=== PATIENT | female | born 1935 | race Caucasian/White ===

== ENCOUNTER 2016-06-06 09:14 | Inpatient (IN) | payer MEDICARE, OTHER ==
[~2016-06-06] VITALS: Ht 160 cm; Wt 71.0 kg
[~2016-06-06 09:14] MED LIST: ALLEGRA-D1 TAB.SR1 PO; ARTIFICIAL TEAR15 ML EACH EYE; ASPIRIN81 MG PO; BUMETANIDE0.5 MG PO; GABAPENTIN100 MG PO; HCTZ25 MG PO; HYDROCODONE-APA1 TAB PO; KLONOPIN1 MG PO; MELATONIN 10 M1 EACH PO; MOBIC7.5 MG PO; NORVASC10 MG PO; NUTRISOURCE FI1 EACH PO; OMEPRAZOLE20 M1 PO; PLAVIX75 MG PO; PRAVACHOL20 MG PO; PROAIR HFA8.5 GM INH; PROBIOTIC1 EAC1 PO; SINGULAIR10 MG PO; TRIAMTERENE-HCT1 TA1 PO; VITAMIN B-121000 MCG PO; VITAMIN D5000 UNIT PO
[2016-06-06 09:59] LABS: BASOPHILS 0.2 % (0.0-2.0); EOSINOPHILS 0.9 % (0-7); HEMATOCRIT 37.5 % (36.0-48.0); HEMOGLOBIN 12.5 g/dL (12-16); IMMATURE GRANULOCYTES 0.3 % (0-5); LYMPHOCYTES 20.1 % (15-50); MCH 31.2 pg (26.0-34.0); MCHC 33.3 g/dL (31.0-37.0); MCV 93.5 fL (80.0-100.0); MEAN PLATELET VOLUME 10.5 fL (7.4-10.4); MONOCYTES 11.2 % (2-11); NEUTROPHILS 67.3 % (40-80); RBC 4.01 10x6/uL (4.00-5.40); RDW 12.3 % (11.5-14.5); WBC 5.9 10x3/uL (4.8-10.8)
[2016-06-06 10:05] LABS: PLATELET COUNT 210 10x3/uL (130-400)
[2016-06-06 10:18] LABS: ALBUMIN 3.4 g/dL (3.4-5.0); ALKALINE PHOSPHATASE 71 U/L (46-116); ALT (SGPT) 27 U/L (10-68); BILIRUBIN - TOTAL 0.35 mg/dL (0.2-1.3); CALC OSMOLALITY 280 mosm/kg (275-300); CALCIUM 9.2 mg/dL (8.5-10.1); CHLORIDE - SERUM 98 mmol/L (98-107); CREATININE - SERUM 1.2 mg/dL (0.6-1.3); GLUCOSE 96 mg/dL (74-106); POTASSIUM - SERUM 3.3 mmol/L (3.5-5.1); PROTEIN - SERUM 7.3 g/dL (6.4-8.2); SODIUM 137 mmol/L (136-145); UREA NITROGEN 31 mg/dL (7-18); eGFR NON AFRICAN AMERICAN 46 mL/min (90-120)
[2016-06-06 10:26] LABS: PRO BNP 494 pg/mL (0-450); TROPONIN-I < 0.017 ng/mL (0.000-0.060)
--- NOTE | 2016-06-06 13:05 | NUR ---
REPORT REC'D FROM ZARI SMITH, IN ER. ROOM READY AND AWAITING PT ARRIVAL.
--- NOTE | 2016-06-06 13:36 | NUR ---
Patient Name: FLAQUITA MCGRATH Admission Status: ER Accout number: [id number] Admission Date: 06-06-2016 : 1935 Admission Diagnosis: Pneumonia Attending: BJORN Current LOS: 1 Anticipated DC Date: 06/10/16 Planned Disposition: Return home with and daughter Primary Insurance: MEDICARE A & B Discharge Planning Comments: Cm met with patient and daughter to complete initial dc planning assessment. Consent given by patient to complete assessment. Patient lives at home with her who has Alzheimer's and she is his primary caregiver. She does not use any assistive devices for ambulatory aide, nor does she use any community resources. Her discharge plans at this time is to return home with her and daughter. She denied dc needs at this time. Cm will continue to follow and assist as needed with dc plans/needs. Wind Turbine Sheet Metal Worker: Radha Srivastava RN, [facility] [phone] Is the patient Alert and Oriented? Yes * PCP Dr. Cheng [place] [facility] * Pharmacy [facility] in [place] * Preadmission Environment Home with Family * ADLs Independent * Equipment None * List name and contact numbers for known caregivers / representatives who currently or will assist patient after discharge: Dodie Newsome - daughter (lives with her) [phone] Yvonne Miller - daughter - [phone] * Community resources currently utilized None * Please name any agencies selected above. none * Additional services required to return to the preadmission environment? No * Can the patient safely return to the preadmission environment? Yes * Has this patient been hospitalized within the prior 30 days at any hospital? No
--- NOTE | 2016-06-06 13:50 | NUR ---
PT REC'D TO ROOM VIA WC, ACCOMPANIED BY HOSPITAL STAFF, ABLE TO AMBULATE WITHOUT ASSISTANCE FROM WC TO BED. 2L O2 BEING DELIVERED VIA NC. AAOX4. PUPILS ARE MISHAPPEN. PT STATES, "I HAD CATARACTS SURGERY WHEN I WAS ABOUT 42, AND IT WAS STILL AN EXPERIMENTAL PROCEDURE AT THE TIME." REGULAR HEART RATE AND RHYTHM. RUNNING 55 SB ON THE MONITOR. EXPIRATORY WHEEZES NOTED BILAT TO UPPER LOBES, AND FINE CRACKLES NOTED TO BILAT LOWER LOBES. FREQUENT PRODUCTIVE COUGH WITH GREEN/YELLOW SPUTUM. BOWEL SOUNDS ACTIVE X4 QUADRANTS. SCD'S ON. BED LOW, CALL LIGHT IN REACH, DENIES NEEDS. CPOC.
--- NOTE | 2016-06-06 14:30 | NUR ---
MEDS PASSED AT THIS TIME. DR. DELANEY AT BEDSIDE DISCUSSING POC. PRN TUSSONEX ADMINISTERED PER PT COMPLAINTS OF CHEST PAIN DUE TO COUGH. WILL REASSESS. BED LOW, CALL LIGHT IN REACH, DENIES NEEDS, CPOC.
[2016-06-06 16:43] VITALS: BP 108/50
[2016-06-06 18:34] VITALS: BP 108/50; BMI 27.8
[2016-06-06 21:35] VITALS: BP 117/88
[2016-06-07 01:00] VITALS: BP 118/43
--- NOTE | 2016-06-07 02:00 | NUR ---
PT IN BED WITH NO NEEDS. LEFT A/C PATENT AND SALINE LOC. SCD'S ON. O2 @ 2 PER NASAL CANNULA. LEFT LOBES DIMINISHED PER AUSCULTATION. TELEMETRY ON WITH PT SINUS SHANTEL. SIDE RAILS ARE UP X 2. BED IS LOW. CALL LIGHT IN REACH.
[2016-06-07 04:00] VITALS: BP 127/48
[2016-06-07 05:45] LABS: BASOPHILS 0 % (0.0-2.0); EOSINOPHILS 0 % (0-7); HEMATOCRIT 35.2 % (36.0-48.0); HEMOGLOBIN 11.5 g/dL (12-16); LYMPHOCYTES 13.2 % (15-50); MCH 30.7 pg (26.0-34.0); MCHC 32.7 g/dL (31.0-37.0); MCV 93.9 fL (80.0-100.0); MEAN PLATELET VOLUME 10.3 fL (7.4-10.4); MONOCYTES 7.6 % (2-11); NEUTROPHILS 79.2 % (40-80); PLATELET COUNT 205 10x3/uL (130-400); RBC 3.75 10x6/uL (4.00-5.40); RDW 12.1 % (11.5-14.5)
[2016-06-07 06:17] LABS: ANION GAP 12.8 mmol/L (8-16); CALCIUM 9.4 mg/dL (8.5-10.1); CARBON DIOXIDE 30.2 mmol/L (21.0-32.0); CREATININE - SERUM 1.5 mg/dL (0.6-1.3)
[2016-06-07 08:29] VITALS: BP 115/50
[2016-06-07 12:29] VITALS: BP 114/41
[2016-06-07 12:57] VITALS: Ht 160 cm; Wt 71.0 kg
--- NOTE | 2016-06-07 15:27 | NUR ---
PATIENT RESTING IN HER BED, HOB UP IN SEMI FOWLERS. SHE IS WORKING ON HER CROSSWORD PUZZLE. STUDENT NURSE AT THE BEDSIDE. DENIED NEEDS AT THIS TIME.
[2016-06-07 15:37] VITALS: BP 123/54
--- NOTE | 2016-06-07 17:44 | NUR ---
PATIENT SITTING UP IN HER BED, ZAYRA WINLERS EATING HER MEAL. DAUGHTER AT THE BEDSIDE. DENIES NEEDS. IS VERY PLEASED WITH HER STUDENT NURSE.
[2016-06-07 19:15] VITALS: BP 127/50
--- NOTE | 2016-06-07 20:40 | NUR ---
PATIENT IN SEMI-FOWLERS POSITION. STUDENT NURSE AND TEACHER AT BEDSIDE ADMINISTERING MEDS. PATIENT DENIES NEEDS AT THIS TIME. BED IN LOWEST POSITION AND CALL LIGHT WITHIN REACH.
[2016-06-08] VITALS: BP 130/55
[2016-06-08 04:00] VITALS: BP 145/46
[2016-06-08 06:41] LABS: BASOPHILS 0 % (0.0-2.0); EOSINOPHILS 0 % (0-7); HEMATOCRIT 36.4 % (36.0-48.0); HEMOGLOBIN 11.9 g/dL (12-16); IMMATURE GRANULOCYTES 0.3 % (0-5); LYMPHOCYTES 16.6 % (15-50); MCH 30.5 pg (26.0-34.0); MCHC 32.7 g/dL (31.0-37.0); MCV 93.3 fL (80.0-100.0); MEAN PLATELET VOLUME 10.1 fL (7.4-10.4); MONOCYTES 9.2 % (2-11); NEUTROPHILS 73.9 % (40-80); PLATELET COUNT 209 10x3/uL (130-400); RDW 12.3 % (11.5-14.5)
[2016-06-08 06:44] LABS: WBC 5.7 10x3/uL (4.8-10.8)
[2016-06-08 07:34] LABS: ANION GAP 12.4 mmol/L (8-16); CALCIUM 9.4 mg/dL (8.5-10.1); CREATININE - SERUM 1.2 mg/dL (0.6-1.3); MAGNESIUM - SERUM 1.5 mg/dL (1.8-2.4); PHOSPHOROUS 2.6 mg/dL (2.5-4.9); POTASSIUM - SERUM 3.4 mmol/L (3.5-5.1)
[2016-06-08 08:05] VITALS: BP 93/54
[2016-06-08 11:51] VITALS: BP 133/51
[2016-06-08 15:43] VITALS: BP 128/57
--- NOTE | 2016-06-08 18:48 | NUR ---
PATIENT EMOTIONAL SINCE HER "HAD ANOTHER SPELL". SHE HAS DESCRIBED HIM BEING COMBATIVE AT TIMES, ESPECIALLY TOWARD HER DAUGHTER THAT IS AT STAYING HOME TO CARE FOR HIM
--- NOTE | 2016-06-08 20:00 | NUR ---
PATIENT RESTING IN BED AND DENIES NEEDS AT THIS TIME. PATIENT'S BED IN LOWEST POSITION AND CALL LIGHT WITHIN REACH.
[2016-06-08 21:24] VITALS: BP 138/56
[2016-06-09 00:46] VITALS: BP 151/61
[2016-06-09 05:33] VITALS: BP 144/55
[2016-06-09 06:23] LABS: BASOPHILS 0.9 % (0.0-2.0); EOSINOPHILS 0.9 % (0-7); HEMATOCRIT 38.3 % (36.0-48.0); HEMOGLOBIN 11.3 g/dL (12-16); IMMATURE GRANULOCYTES 2.8 % (0-5); LYMPHOCYTES 16.6 % (15-50); MCH 27.7 pg (26.0-34.0); MCHC 29.5 g/dL (31.0-37.0); MCV 93.9 fL (80.0-100.0); MEAN PLATELET VOLUME 11.4 fL (7.4-10.4); NEUTROPHILS 73.8 % (40-80); RBC 4.08 10x6/uL (4.00-5.40); RDW 12.3 % (11.5-14.5); WBC 5.4 10x3/uL (4.8-10.8)
[2016-06-09 06:24] LABS: PLATELET COUNT 161 10x3/uL (130-400)
[2016-06-09 06:48] LABS: ANION GAP 15.3 mmol/L (8-16); CALCIUM 9.6 mg/dL (8.5-10.1); CREATININE - SERUM 0.9 mg/dL (0.6-1.3)
[2016-06-09 06:49] LABS: POTASSIUM - SERUM 4.3 mmol/L (3.5-5.1)
[2016-06-09 08:48] VITALS: BP 150/109
[2016-06-09 11:17] VITALS: BP 157/103
--- NOTE | 2016-06-09 13:51 | NUR ---
NUTRITION MONITORING & EVAL CHART REVIEWED. PT TOLERATING AHA DIET, 50% INTAKE RECENT MEALS. WILL CONTINUE TO PROVIDE DIET, MONITOR PT PROGRESS. RD FOLLOWING
[2016-06-09 14:49] VITALS: BP 160/49
--- NOTE | 2016-06-09 20:30 | NUR ---
AWAKE,ALERT,NO COMPLIANTS VOICED. SL TO RIGHT FOREARM WIHTOUT REDNESS OR EDEMA NOTED. UP AD DELISA TO BATHROOM. CL IN REACH. DAUGHTER AT BEDSIDE.
[2016-06-09 21:00] VITALS: BP 124/54
--- NOTE | 2016-06-10 00:01 | NUR ---
RESTING IN BED WITH EYES CLOSED, NC IN PLACE, NO DISTRESS NOTED, SAFETY MEASURES IN PLACE, CL IN REACH
[2016-06-10 01:30] VITALS: BP 122/60
[2016-06-10 05:00] VITALS: BP 136/88
[2016-06-10 05:13] LABS: BASOPHILS 0.3 % (0.0-2.0); EOSINOPHILS 0 % (0-7); HEMATOCRIT 39.3 % (36.0-48.0); IMMATURE GRANULOCYTES 2.6 % (0-5); LYMPHOCYTES 20.5 % (15-50); MCH 30.7 pg (26.0-34.0); MCHC 33.1 g/dL (31.0-37.0); MCV 92.9 fL (80.0-100.0); MEAN PLATELET VOLUME 10.3 fL (7.4-10.4); MONOCYTES 8.1 % (2-11); NEUTROPHILS 68.5 % (40-80); RBC 4.23 10x6/uL (4.00-5.40); RDW 12.3 % (11.5-14.5)
[2016-06-10 05:16] LABS: PLATELET COUNT 243 10x3/uL (130-400)
[2016-06-10 05:46] LABS: CALCIUM 9.7 mg/dL (8.5-10.1); CARBON DIOXIDE 30.6 mmol/L (21.0-32.0)
--- NOTE | 2016-06-10 05:47 | NUR ---
AWAKE WITH NO COMPLAINTS
[2016-06-10 05:49] LABS: POTASSIUM - SERUM 3.6 mmol/L (3.5-5.1)
--- NOTE | 2016-06-10 07:00 | NUR ---
REPORT RECEIVED FROM BAKERY WORKER NURSE. CALL LIGHT IN REACH.
[2016-06-10 08:00] VITALS: BP 146/52
--- NOTE | 2016-06-10 09:25 | NUR ---
PREOP MEDS GIVEN. TO RADIOLOGY VIA .
--- NOTE | 2016-06-10 10:10 | NUR ---
BACK IN ROOM AT THIS TIME. VSS. WILL CONTINUE TO MONITOR.
[2016-06-10 11:35] VITALS: BP 124/82
--- NOTE | 2016-06-10 12:00 | NUR ---
DAUGHTER HAS CALLED THE ICU NURSE AND STATED SHE WANTS A RAPID RESPONSE BUT SHE THERE ARE NO REASONS FOR ONE RIGHT NOW.
--- NOTE | 2016-06-10 12:11 | NUR ---
AM MEDS ADMINISTERED. AC PO. SON AT BEDSIDE. CALL LIGHT IN REACH. PATIENT HAS NO COMPLAINTS AT THIS TIME AND SEEMS TO BE HAPPY.
--- NOTE | 2016-06-10 14:50 | NUR ---
EXPLAINED TO PATIENT THAT SHE IS NOW ON A 1500 CC H20 WATER.
--- NOTE | 2016-06-10 15:08 | NUR ---
RAFA LOMBARDI PO. STATES PAIN HAS DECREASED TO A 2. IN ROOM AT THIS TIME. CALL LIGHT IN REACH.
[2016-06-10 15:24] VITALS: BP 112/37
--- NOTE | 2016-06-10 16:00 | NUR ---
DENIES NEEDS AT THIS TIME. CALL LIGHT IN REACH AND RESPIRATIONS EVEN AND NON LABORED. CALL LIGHT IN REACH, WILL CONTINUE WITH PLAN OF CARE.
--- NOTE | 2016-06-10 17:15 | NUR ---
RESTING WITH EYES CLOSED. RESP EVEN AND UNLABORED.
--- NOTE | 2016-06-10 18:26 | NUR ---
NO CHANGES IN INITIAL ASSESSMENT. CALL LIGHT IN REACH. WILL CONTINUE WITH PLAN OF CARE. STILL REFUSES SCDs.
--- NOTE | 2016-06-10 18:53 | NUR ---
RECEIVED LUNCH TRAY BUT DID NOT RECEIVED DINNER TRAY. ORDER WAS PLACED IN COMPUTER AT 1830 AND KITCHEN WAS CALLED BUT THERE WAS NO ANSWER. I CALLED SEVERAL TIMES AND CALLED OVERHEAD BUT THERE WAS NO ANSWER SO SANDWICH TRAY WAS GIVEN TO PATIENT.
--- NOTE | 2016-06-10 20:00 | NUR ---
ASSESSMENT COMPLETED, NO ACUTE DISTRESS NOTED, DENIES PAIN OR NEEDS AT THIS TIME, DTR IN ROOM, SR'S UP X2, CL IN REACH, WILL MONITOR
[2016-06-10 21:25] VITALS: BP 136/58
--- NOTE | 2016-06-10 21:49 | NUR ---
MEDS GIVEN PER MAR, MARGARET WELL, DENIES NEEDS, CL IN REACH
[2016-06-11 01:14] VITALS: BP 132/56
[2016-06-11 05:00] LABS: BASOPHILS 0.1 % (0.0-2.0); EOSINOPHILS 0 % (0-7); HEMATOCRIT 39.7 % (36.0-48.0); HEMOGLOBIN 12.8 g/dL (12-16); IMMATURE GRANULOCYTES 2.2 % (0-5); LYMPHOCYTES 10.4 % (15-50); MCH 30.2 pg (26.0-34.0); MCHC 32.2 g/dL (31.0-37.0); MCV 93.6 fL (80.0-100.0); MEAN PLATELET VOLUME 10.2 fL (7.4-10.4); MONOCYTES 4.6 % (2-11); NEUTROPHILS 82.7 % (40-80); PLATELET COUNT 268 10x3/uL (130-400); RBC 4.24 10x6/uL (4.00-5.40); RDW 12.3 % (11.5-14.5)
[2016-06-11 05:05] LABS: WBC 7.8 10x3/uL (4.8-10.8)
[2016-06-11 05:19] LABS: ANION GAP 10.2 mmol/L (8-16); CALCIUM 9.4 mg/dL (8.5-10.1); CARBON DIOXIDE 31.4 mmol/L (21.0-32.0); CREATININE - SERUM 1.1 mg/dL (0.6-1.3); POTASSIUM - SERUM 3.6 mmol/L (3.5-5.1)
--- NOTE | 2016-06-11 05:25 | NUR ---
MEDS GIVEN PER JUN ALONG WITH 0900 SCHEDULED LASIX PER REQUEST, WILL CONTACT PHARMACY TO RETIME, DENIES OTHER NEEDS, CL IN REACH
[2016-06-11 06:50] VITALS: BP 127/50
--- NOTE | 2016-06-11 07:00 | NUR ---
REPORT RECEIVED FROM LEVI MAKER NURSE. CALL LIGHT IN REACH.
[2016-06-11 08:20] VITALS: BP 125/72
--- NOTE | 2016-06-11 09:18 | NUR ---
ASSESSMENT COMPLETED. AM MEDS ADMINISTERED WITH NORCO GIVEN. REFUSES SCDs. CALL LIGHT IN REACH. WILL CONTINUE WITH PLAN OF CARE. SPOKE WITH PHARMACY ABOUT MUCINEX BEING EMPTY IN BOTH PYXIS. WILL GIVE WHEN IT IS AVAILABLE. ALSO INFORMED WHOM VERBALIZED UNDERSTANDING.
--- NOTE | 2016-06-11 09:54 | NUR ---
TO CT VIA WC.
--- NOTE | 2016-06-11 10:10 | NUR ---
BACK IN ROOM AT THIS TIME. CALL LIGHT IN REACH.
--- NOTE | 2016-06-11 12:08 | NUR ---
AMBULATED 750 FT IN HALLWAY. TOLERATED WELL. JACOB PO. MUCINEX STILL IS NOT ON FLOOR. INFORMED PHARMACY AGAIN.
[2016-06-11 12:19] VITALS: BP 138/66
--- NOTE | 2016-06-11 12:25 | NUR ---
PAULINE PO. LUNCH IN ROOM. CALL LIGHT IN REACH.
--- NOTE | 2016-06-11 14:40 | NUR ---
RAFA LOMBARDI AND DEENA PO. CALL LIGHT IN REACH.
[2016-06-11 15:22] LABS: AFB SPECIMEN PROCESSING Concentration (())
--- NOTE | 2016-06-11 16:20 | NUR ---
RESTING WITH EYES CLOSED. RESP EVEN AND UNLABORED. CALL LIGHT IN REACH.
[2016-06-11 16:55] VITALS: BP 124/59
--- NOTE | 2016-06-11 17:01 | NUR ---
PATIENT IN MID FAN POSITION RESTING WITH EYES CLOSED. RESPIRATIONS EVEN AND UNLABORED. SIDE RAILS UP X2. BED IN LOW POSITION. CALL LIGHT IN REACH.
--- NOTE | 2016-06-11 18:38 | NUR ---
NO CHANGES IN INITIAL ASSESSMENT. REFUSES SCDs. CALL LIGHT IN REACH. WILL CONTINUE WITH PLAN OF CARE.
[2016-06-11 21:03] VITALS: BP 111/57
--- NOTE | 2016-06-12 00:22 | NUR ---
PATIENT SPO2 93% ON RA, NO DISTRESS NOTED
[2016-06-12 00:59] VITALS: BP 133/49
[2016-06-12 04:00] VITALS: BP 120/46
--- NOTE | 2016-06-12 07:30 | NUR ---
RECIEVED PT DURING WALKING ROUNDS. PT RESTING COMFORTABLY IN BED WITH NO COMPLAINTS OF PAIN OR DISCOMFORT AT THIS TIME. ASSESSMENT DONE PER FLOWSHEET. BED IN LOW POSITION AND CALL LIGHT WITHIN REACH. WILL CONTINUE TO MONTIOR.
[2016-06-12 07:59] VITALS: BP 134/68
--- NOTE | 2016-06-12 08:00 | NUR ---
RESTING ON RIGHT SIDE.PT IS WITHOUT DISTRESS.DENIES NEEDS AT PRESENT.CALL LIGHT IN REACH
--- NOTE | 2016-06-12 08:50 | NUR ---
DISCUSSED WITH PT AT THIS TIME ABOUT POSSIBLE DISCHARGE. INFORMED PT THAT IT WOULD BE UP TO THE DOCTOR. BED IN LOW POSITION AND CALL LIGHT ALECIN REACH. WILL CONTINUE TO MONITOR.
--- NOTE | 2016-06-12 11:06 | NUR ---
ADMINISTERED MEDICATION PER ORDER AT THIS TIME. SPOKE WITH PT DAUGHTER ON THE PHONE AT THIS TIME AND ANSWERED ANY QUESTIONS. SPOKE WITH DR. STEVEN AT THIS TIME ABOUT PT NEED FOR O2, WAS INSTRUCTED TO TAKE OXYGEN OFF AND SEE HOW PT TOLERATES. O2 ON 2L AT THIS TIME, PT SAT BETWEEN 96-97%. OXYGEN TAKEN OFF. WILL CONTINUE TO MONITOR.
--- NOTE | 2016-06-12 11:15 | NUR ---
PT PLACED ON DROPLET PRECAUTIONS AT THIS TIME DUE TO PENDING CULTURES. INFORMED DR. STEVEN AT THIS TIME. PT O2 92% ON ROOM AIR, INSTRUCTED PT TO COUGH AT THIS TIME AND OS SAT RAISED TO 98%. WILL CONTINUE TO MONITOR.
--- NOTE | 2016-06-12 11:40 | NUR ---
SPOKE WITH PTS OTHER DAUGHTER JOHNATHAN AT THIS TIME. WAS INFORMED THAT PT HAS BEEN ON ZOLOFT AT HOME AND HAS NOT BEEN RECIEVING MEDICATION WHILE IN THE HOSPITAL. DISCUSSED WITH DR. STEVEN AT THIS TIME AND RECIEVED ORDERS TO RENEW MEDICATION. WILL START MEDICATION PER ORDER. INFORMED PT OF INFORMATION. BED IN LOW POSITION AND CALL LIGHT WITHIN REACH. WILL CONTINUE TO MONITOR.
[2016-06-12 12:08] VITALS: BP 128/52
[2016-06-12 16:23] VITALS: BP 131/62
[2016-06-12 19:00] VITALS: BP 140/51
--- NOTE | 2016-06-12 20:00 | NUR ---
REC'D IN BED AWAKE AND ALERT. RESP EVEN AND UNLABORED WITH NO DISTRESS NOTED. CAN EXPRESS NEEDS AND WANTS. NO C/O PAIN OR DISCOMFORT NOTED OR VOICED AT THIS TIME. REMAIN ON CONTACT ISOLATION D/T DROPLET PRECAUTION. ASSESSMENT COMPLETED. C/L IN REACH AT BEDSIDE.
[2016-06-13] VITALS: BP 127/51
--- NOTE | 2016-06-13 00:19 | NUR ---
PATIENT RESTING WITH EYES CLOSED. NO SIGNS OF DISTRESS. BED IN LOWEST POSITION AND CALL LIGHT WITHIN REACH.
[2016-06-13 04:00] VITALS: BP 141/55
[2016-06-13 08:04] VITALS: BP 140/47
--- NOTE | 2016-06-13 08:22 | NUR ---
AWAKE AND ALERT. ORIENTED X3. NO C/O AT THIS TIME. LUNGS ARE CLEAR BILATERALLY EXCEPT TO LEFT LOWER LOBE WHICH HAS SOME CRACLES AND BOTH LL ARE DIMINISHED SLIGHTLY, REPORTS OCCASSIONALLY PRODUCTIVE COUGH WITH WHITISH LIGHT YELLOW SPUTUM. IV TO LEFT HAND PATENT WITHOUT REDNESS AT INSERTION SITE. DENIES NEEDS. BREAKFAST SERVED IN ROOM.
--- NOTE | 2016-06-13 09:20 | NUR ---
REQUESTED AND GIVEN ONE HYDROCODONE PO FOR C/O BACK PAIN LEVEL 5, SHE REPORTS THIS CHRONIC. WILL MONITOR.
--- NOTE | 2016-06-13 12:15 | NUR ---
ATE MOST OF LUNCH. DENIES NEEDS. DR. HUERTA HERE AND ADVISED PATIENT PROBABLE DISCHARGE TO HOME TOMMORROW.
[2016-06-13 12:28] VITALS: BP 109/42
--- NOTE | 2016-06-13 16:00 | NUR ---
UP TO BR TO SHOWER. NEEDS SET UP ASSIST ONLY. LINENS CHANGED PER STAFF.
[2016-06-13 16:14] VITALS: BP 105/42
--- NOTE | 2016-06-13 18:44 | NUR ---
ATE ABOUT HALF OF SUPPER TRAY. DENIES NEEDS. NO CHANGES NOTED.
--- NOTE | 2016-06-13 20:23 | NUR ---
PATIENT RESTING IN BED. NO SIGNS OF DISTRESS NOTED. RESPIRATIONS EVEN AND UNLABORED. SCHEDULED MEDICATIONS GIVEN. DENIES ANY NEEDS AT THIS TIME. BED LOW. CALL LIGHT IN REACH
[2016-06-13 21:00] VITALS: BP 127/62
[2016-06-14 02:00] VITALS: BP 120/66
--- NOTE | 2016-06-14 02:15 | NUR ---
EYES CLOSED RESPIRATIONS WITH EAS AND UNLABORED.
--- NOTE | 2016-06-14 07:50 | NUR ---
AWAKE AND ALERT AT THIS TIME RECEIVING RESPIRATORY TREATMENT. REMINDED PT OF FLUID RESTRICTION AND SHE STATED, "I DON'T RETAIN FLUID. I RETAIN FAT." DENIES NEEDS AT PRESENT TIME. CALL LIGHT IN REACH, WILL CONTINUE WITH PLAN OF CARE. REMAINS IN DROPLET ISOLATION.
[2016-06-14 08:52] VITALS: BP 156/74
[2016-06-14 09:36] LABS: ALBUMIN 3.4 g/dL (3.4-5.0); ANION GAP 14.9 mmol/L (8-16); BILIRUBIN - TOTAL 0.38 mg/dL (0.2-1.3); CALCIUM 9.3 mg/dL (8.5-10.1); CARBON DIOXIDE 29.2 mmol/L (21.0-32.0); CREATININE - SERUM 1.2 mg/dL (0.6-1.3); POTASSIUM - SERUM 3.1 mmol/L (3.5-5.1); PROTEIN - SERUM 7.1 g/dL (6.4-8.2)
--- NOTE | 2016-06-14 10:09 | NUR ---
SCHEDULED MEDICATIONS ADMINISTERED AT THIS TIME. ASSESSMENT PERFORMED PER FLOWSHEET. PT REMAINS IN DROPLET ISOLATION. PT IS HOPEFUL FOR A D/C HOME TODAY. CALL LIGHT IN REACH. PT SELF POSITIONS AND AMBULATES INDEPENDENTLY. WILL CONTINUE WITH PLAN OF CARE.
[2016-06-14 10:18] LABS: BASOPHILS 0.1 % (0.0-2.0); EOSINOPHILS 0.1 % (0-7); HEMATOCRIT 42.3 % (36.0-48.0); HEMOGLOBIN 13.6 g/dL (12-16); LYMPHOCYTES 17.4 % (15-50); MCH 30.4 pg (26.0-34.0); MCHC 32.2 g/dL (31.0-37.0); MCV 94.4 fL (80.0-100.0); MEAN PLATELET VOLUME 10.3 fL (7.4-10.4); MONOCYTES 7.8 % (2-11); NEUTROPHILS 71.6 % (40-80); RBC 4.48 10x6/uL (4.00-5.40); RDW 12.4 % (11.5-14.5); WBC 9.7 10x3/uL (4.8-10.8)
[2016-06-14 10:21] LABS: PLATELET COUNT 378 10x3/uL (130-400)
--- NOTE | 2016-06-14 12:20 | NUR ---
PRN NORCO-10 ADMINISTERED PER ORDER FOR C/O PAIN.
[2016-06-14 12:32] VITALS: BP 121/80
[2016-06-14 13:47] LABS: FUNGUS STAIN Final report (())
[2016-06-14] MEDS ORDERED: PULMICORT0.5 MG/21 UPD (13:52)
[2016-06-14] MEDS ORDERED: BENZONATATE200 MG PO (13:52)
[2016-06-14] MEDS ORDERED: MUCINEX DM ER1 EAC1 PO (13:52)
[2016-06-14] MEDS ORDERED: LASIX20 MG PO (13:53)
[2016-06-14] MEDS ORDERED: PREDNISONE20 MG PO ×2 (13:53→15:17)
[2016-06-14] MEDS ORDERED: XOPENEX 0.0.63 MG/3 UPD (13:54)
[2016-06-14] MEDS ORDERED: BROVANA15 MCG/2 M INH (13:54)
[2016-06-14] MEDS ORDERED: COZAAR50 MG PO (13:54)
[2016-06-14] MEDS ORDERED: FAMVIR500 MG PO (13:56)
[2016-06-14] MEDS ORDERED: DIFLUCAN100 MG PO (13:56)
[2016-06-14] MEDS ORDERED: VIBRAMYCIN 100100 MG PO (13:56)
[2016-06-14] MEDS ORDERED: TUSSIONEX PENN473 ML PO (14:28)
--- NOTE | 2016-06-14 14:44 | NUR ---
CM REASSESSMENT NOTE: PATIENT IS DISCHARGING HOME TODAY AND FAMILY WILL BE DRIVING HER. PATIENT CHOSE [facility] AND REFERRAL SENT AND THEY ARE AWARE OF DISCHARGE. PATIENT SIGNED THE D/C IMM NOTICE.
[2016-06-14] MEDS ORDERED: PREDNISONE10 MG PO (15:17)
--- NOTE | 2016-06-14 16:45 | NUR ---
RA SAT DURING AMBULATION 94%
--- NOTE | 2016-06-14 17:50 | NUR ---
DISCHARGED HOME WITH DAUGHTER AT THIS TIME. DISCHARGE INSRUCTIONS REVIEWED AND IV TO LEFT WRIST D/C WITH CATH TIP INTACT.
[2016-06-15 03:08] LABS: INFLUENZA A PCR Positive (Negative); INFLUENZA B PCR Negative (Negative)
--- NOTE | 2016-06-17 09:40 | CN ---
PATIENT NAME:FLAQUITA DENNY MEDICAL RECORD: [id number] : 39 LOCATION:D.[id number] ADMIT DATE: 06/06/16 ACCOUNT: [id number] CONSULTING PHYSICIAN: SURAJ DELANEY MD REFERRING PHYSICIAN: LISA MARINELLI MD DATE OF CONSULTATION: 06/06/2016 CONSULT REQUESTING PHYSICIAN: Lisa Marinelli MD. REASON FOR CONSULTATION: Dyspnea, acute cough, shortness of breath. HISTORY OF PRESENT ILLNESS: Ms. Denny is a 81-year-old female and she is sick for the last 3 days. She thinks she caught something. She has sinus congestion. She is congested in her chest. She has cough which is spasmodic in nature. She hears herself wheezing. She had generalized body aches and pain. Denies any acid reflux. REVIEW OF SYSTEMS: Mainly in the history of present illness. PAST MEDICAL HISTORY: 1. COPD, asthma, overlap syndrome. 2. Hypertension. 3. History of syncope. 4. History of chest, possible coronary artery disease. PAST SURGICAL HISTORY: 1. She had a knee surgery. 2. Cataract surgery. ALLERGIES: There are no known drug allergies. MEDICATIONS: On Needbox AS was reviewed. PERSONAL AND SOCIAL HISTORY: The patient is an ex-smoker. She is a nondrinker. FAMILY HISTORY: Significant for parents who has cancer. Sibling has a cancer. PHYSICAL EXAMINATION: GENERAL: Now, the patient is lying comfortably in bed. She is not in acute distress. VITAL SIGNS: The blood pressure is 124/49, pulse is 59, respiration is 22, temperature 98.9, SpO2 was 90% on room air. HEENT: Conjunctivae pink, sclerae nonicteric. NECK: Supple, no JVD. CHEST: Excursion is minimal on both sides. Wheeze on forceful expiration. HEART: Rhythm regular, normal sound, no murmur. ABDOMEN: Soft, bowel sounds present. No hepatosplenomegaly. RECTAL: Deferred. EXTREMITIES: No cyanosis, no clubbing, no pedal edema. SKIN: Warm, normal turgor. CENTRAL NERVOUS SYSTEM: The patient is awake and alert. There are no obvious cranial nerve abnormality. The gait was not tested. IMAGING: Chest radiograph, there is hyperinflation, no acute infiltrates. CTA of the chest did not show any pulmonary embolism and no infiltrate. CONSULT REPORT [id number] FLAQUITA DENNY LABORATORY DATA: CBC: WBC 5.9, hemoglobin 12.5, hematocrit is 37.5, the platelet count 210. Chemistry: Sodium is 137, potassium 3.3, BUN is 31, creatinine 1.2. IMPRESSION: 1. Acute exacerbation of chronic obstructive pulmonary disease. 2. Tracheobronchitis. 3. Acute cough. 4. History of asthma, chronic obstructive pulmonary disease, overlap syndrome. 5. Dyspnea. 6. Ex-smoker. 7. History of coronary artery disease. 8. Hypertension. 9. Positive D-dimer with negative CTA of the chest for pulmonary embolism. RECOMMENDATION: 1. Albuterol ipratropium nebulizer. 2. Brovana, budesonide nebulizer and methylprednisolone IV. 3. Continue Levaquin. 4. Repeat the chest radiograph in the morning. 5. Mucinex JULIAN, Kelly aGrg. Dr. Marinelli, once again thanks for involving me in the care of Ms. Denny. TRANSINT:[id number] Voice Confirmation ID: [id number] DOCUMENT ID: [id number] SURAJ DELANEY MD at 0940 CC: LISA MARINELLI MD [id number] DICTATION DATE: 06/06/16 1407 PEDIATRIC PHYSICIAN ASSISTANT: 06/06/16 1612 DIS IN 06/14/16 [facility] [address] [place] [address]
--- NOTE | 2016-06-18 08:46 | EC ---
PATIENT:FLAQUITA MCGRATH DATE OF SERVICE: 06/06/16 SEX: F MEDICAL RECORD: [id number] DATE OF : 39 LOCATION:D.MS [place] AGE OF PATIENT: 81 ADMISSION DATE: 06/06/16 REFERRING PHYSICIAN: INTERPRETING PHYSICIAN: KATHIE ROSENTHAL MD ECHOCARDIOGRAM REPORT ECHO CHARGES 4 ECHO COMPLETE CLINICAL DIAGNOSIS: ELEVATED BNP/ASSESS EF HX OF CAD/STENT/HTN ECHOCARDIOGRAPHIC MEASUREMENTS (adult normal given) AC root (d.<3.7cm) 3.2 LV Septum d (<1.2 cm> 1.2 Valve Excursion 1.7 LV Septum (systole) 1.5 Left Atria (s.<4.0cm> 3.8 LVPW d(<1.2cm) 1.5 RV (d.<2.3cm) 3.0 LVPW (sytole) 1.7 LV diastole(<5.6CM) 4.4 MV E-F(>70mm/sec) LV systole 2.6 LVOT Diameter 1.9 MV exc.(>10mm) 1.4 Est.ejection fraction (50-75%) Pericardial Effusion N DOPPLER: LVIT A 118 E 85.0 LA RVSP 50 LVOT 107 AOP1/2T 571 Asc. Ao 196 RVOT 113 RA PA 120 AV Gradient Peak 15.32 AV Mean 7.82 AV Area 1.9 MV Gradient Peak 6.81 MV Mean 2.02 MV Area COMMENTS: First Beater: Jimi DAMICO [place]:2 Dr. Carmona TAPE# PACS DATE OF SERVICE: 06/10/2016 Echocardiogram FINDINGS: 1. Left ventricular chamber size is within normal limits. Left ventricular systolic function is normal. Overall ejection fraction estimated at 60%. 2. Left atrium is within normal limits at 3.8 cm. Right atrium and right ventricular chamber sizes are mildly dilated. 3. Valvular structures: Aortic valve demonstrates mild calcific aortic ECHOCARDIOGRAM REPORT [id number] FLAQUITA MCGRATH stenosis. Valve area calculates to 1.9 cm-squared and there is a gradient of 15 mm across the valve. The remaining valvular structures have normal structure and motion. 4. Doppler interrogation elsewise reveals mild aortic insufficiency, mild mitral regurgitation, moderate tricuspid regurgitation, no other valvular insufficiency or stenosis. Pulmonary systolic pressure is mildly elevated estimated at 50 mmHg. 5. No evidence of pericardial effusion or left ventricular thrombus. TRANSINT:[id number] Voice Confirmation ID: [id number] DOCUMENT ID: [id number] KATHIE ROSENTHAL MD at 0846 CC: [id number] DICTATION DATE: 06/11/16 1241 EMPLOYMENT SPECIALIST: 06/11/16 1348 DIS IN 06/14/16 [place] [id number] [place] [id number]
[2016-06-29 09:19] LABS: FUNGUS CULTURE RESULT 1 Candida albicans (())
[2016-07-14 11:19] LABS: FUNGUS MYCOLOGY CULTURE Final report (())
[2016-07-30 11:18] LABS: ACID FAST CULTURE Negative (()); ACID FAST SMEAR Negative (())
== END 2016-06-14 17:50 | disposition home health service (06) | DRG 190 ==
LOC: D.ER 09:14 → D.MS 13:04
PROVIDERS: Family Medicine; Internal Medicine Pulmonary Disease; ADMIT Emergency Medicine
PROC: 0BJ08ZZ Inspection of Tracheobronchial Tree, Via Natural or Artificial Opening Endoscopic (ICD-10-PCS; principal; 2016-06-10 09:23)
DX: J44.0 Chronic obstructive pulmonary disease with (acute) lower respiratory infection (principal); J15.212 Pneumonia due to Methicillin resistant Staphylococcus aureus; J45.901 Unspecified asthma with (acute) exacerbation; J44.1 Chronic obstructive pulmonary disease with (acute) exacerbation; J20.9 Acute bronchitis, unspecified; I12.9 Hypertensive chronic kidney disease with stage 1 through stage 4 chronic kidney disease, or unspecified chronic kidney disease; N18.3 Chronic kidney disease, stage 3 (moderate); R79.89 Other specified abnormal findings of blood chemistry; E87.6 Hypokalemia; Z87.891 Personal history of nicotine dependence; E83.42 Hypomagnesemia; B96.89 Other specified bacterial agents as the cause of diseases classified elsewhere; I25.10 Atherosclerotic heart disease of native coronary artery without angina pectoris; D64.9 Anemia, unspecified; M26.609 Unspecified temporomandibular joint disorder, unspecified side

== ENCOUNTER → 2019-11-06 08:43 | Outpatient (CLI) | payer MEDICARE, OTHER ==
[2016-06-07 12:57] VITALS: BMI 28.1
[~2019-11-06 08:43] MED LIST changes: +ADVAIR HFA [SP]12 GM INH; +ALBUTEROL SULF8.5 GM INH; +BENZONATATE200 MG PO; +BROVANA15 MCG/2 M INH; +CELEBREX 100 M100 MG PO; +COREG 3.1253.125 MG PO; +COZAAR50 MG PO; +DIFLUCAN100 MG PO; +FAMVIR500 MG PO; +HYDROCHLOROTHIA25 MG PO; +HYDROCODON-ACE1 EAC2 PO; +K-TAB10 MEQ PO; +LASIX20 MG PO; +LIPITOR40 MG PO; +MUCINEX DM ER1 EAC1 PO; +NORVASC5 MG PO; +PEPCID AC20 MG PO; +PREDNISONE10 MG PO; +PREDNISONE20 MG PO; +PRILOSEC PO; +PULMICORT0.5 MG/21 UPD; +SPIRIVA18 MCG INH; +TUSSIONEX PENN473 ML PO; +VIBRAMYCIN 100100 MG PO; +XOPENEX 0.0.63 MG/3 UPD; +ZOFRAN4 MG PO
== END | disposition home or self-care (01) ==
LOC: D.RAD 08:30
PROVIDERS: ATTEND Internal Medicine Gastroenterology
DX: R12 Heartburn (principal); R11.0 Nausea; R63.4 Abnormal weight loss; Z86.010 Personal history of colon polyps; Z80.0 Family history of malignant neoplasm of digestive organs

== ENCOUNTER 2019-11-06 11:03 | Inpatient (IN) | payer MEDICARE, OTHER ==
[~2019-11-06] VITALS: Ht 160 cm; Wt 73.8 kg
[~2019-11-06 11:03] MED LIST changes: -ADVAIR HFA [SP]12 GM INH; -ALBUTEROL SULF8.5 GM INH; -CELEBREX 100 M100 MG PO; -COREG 3.1253.125 MG PO; -HYDROCHLOROTHIA25 MG PO; -HYDROCODON-ACE1 EAC2 PO; -K-TAB10 MEQ PO; -LIPITOR40 MG PO; -NORVASC5 MG PO; -PEPCID AC20 MG PO; -PRILOSEC PO; -SPIRIVA18 MCG INH; -ZOFRAN4 MG PO
[2019-11-06] MEDS ORDERED: COREG 3.1253.125 MG PO (11:19)
[2019-11-06] MEDS ORDERED: NORVASC5 MG PO (11:19)
[2019-11-06] MEDS ORDERED: PRILOSEC PO (11:20)
[2019-11-06] MEDS ORDERED: SPIRIVA18 MCG INH (11:20)
[2019-11-06] MEDS ORDERED: ZOFRAN4 MG PO (11:21)
[2019-11-06] MEDS ORDERED: LIPITOR40 MG PO (11:21)
[2019-11-06] MEDS ORDERED: SINGULAIR10 MG PO (11:21)
[2019-11-06] MEDS ORDERED: K-TAB10 MEQ PO (11:21)
[2019-11-06] MEDS ORDERED: ADVAIR HFA [SP]12 GM INH (11:22)
[2019-11-06] MEDS ORDERED: HYDROCHLOROTHIA25 MG PO (11:22)
[2019-11-06] MEDS ORDERED: PEPCID AC20 MG PO (11:22)
[2019-11-06] MEDS ORDERED: CELEBREX 100 M100 MG PO (11:22)
[2019-11-06] MEDS ORDERED: ALBUTEROL SULF8.5 GM INH (11:23)
[2019-11-06] MEDS ORDERED: HYDROCODON-ACE1 EAC2 PO (11:23)
[2019-11-06] MEDS ORDERED: ASPIRIN81 MG PO (11:23)
[2019-11-06 12:06] VITALS: BP 137/77
[2019-11-06 12:19] LABS: HEMATOCRIT 45.4 % (36.0-48.0); HEMOGLOBIN 14.9 g/dL (12-16); LYMPHOCYTES 23.1 % (15-50); MCHC 32.8 g/dL (31.0-37.0); MCV 91.5 fL (80.0-100.0); MEAN PLATELET VOLUME 10.2 fL (7.4-10.4); NEUTROPHILS 68.5 % (40-80); PLATELET COUNT 307 10x3/uL (130-400); RBC 4.96 10x6/uL (4.00-5.40); RDW 13.4 % (11.5-14.5); WBC 7.1 10x3/uL (4.8-10.8)
[2019-11-06 12:25] LABS: APTT 28.9 SECONDS (22.8-39.4); INR 0.9 (0.85-1.17); PROTIME 12.2 SECONDS (11.6-15.0)
[2019-11-06 12:26] LABS: D-DIMER-QUANTITATIVE 1.14 ug/mLFEU (0.20-0.54)
[2019-11-06 12:36] LABS: ALBUMIN 3.5 g/dL (3.4-5.0); ALKALINE PHOSPHATASE 77 U/L (30-120); ALT (SGPT) 16 U/L (10-68); BILIRUBIN - TOTAL 0.56 mg/dL (0.2-1.3); CALC OSMOLALITY 276 mosm/kg (275-300); CARBON DIOXIDE 29.3 mmol/L (21.0-32.0); CHLORIDE - SERUM 101 mmol/L (98-107); CKMB 0.4 U/L (0.0-3.6); CREATINE KINASE 42 UL (21-215); GLUCOSE 116 mg/dL (74-106); PRO BNP 1051 pg/mL (0-450); PROTEIN - SERUM 7.1 g/dL (6.4-8.2); SODIUM 138 mmol/L (136-145); THYROID STIMULATING HORMONE 1.43 uIU/mL (0.36-3.74); TROPONIN-I < 0.017 ng/mL (0.000-0.060); UREA NITROGEN 12 mg/dL (7-18); eGFR NON AFRICAN AMERICAN 56 mL/min (90-120)
[2019-11-06 12:39] LABS: POTASSIUM - SERUM 2.8 mmol/L (3.5-5.1)
--- NOTE | 2019-11-06 12:41 | NUR ---
CRITICAL LAB: K 2.8 DR GALLARDO NOTIFIED.
[2019-11-06 13:00] VITALS: BP 145/68
--- NOTE | 2019-11-06 15:49 | NUR ---
REPORT RECEIVED FROM PATI HAMEED
[2019-11-06 15:56] LABS: BILIRUBIN NEGATIVE (NEGATIVE); GLUCOSE NEGATIVE (NEGATIVE); KETONE NEGATIVE (NEGATIVE); NITRITE NEGATIVE (NEGATIVE); UROBILINOGEN NORMAL (NORMAL)
[2019-11-06 15:58] LABS: BACTERIA FEW /hpf (NEGATIVE); EPITHELIAL CELLS OCC /hpf (0-5); WHITE CELLS - URINE 0-5 /hpf (NEGATIVE)
--- NOTE | 2019-11-06 15:58 | NUR ---
PT REQUEST FOR WATER AND SALTINES PLACED AT BEDSIDE TABLE.
--- NOTE | 2019-11-06 16:12 | NUR ---
DAUGHTER AT BEDSIDE.
[2019-11-06 17:10] VITALS: BP 126/65
--- NOTE | 2019-11-06 17:48 | NUR ---
TRANSFER FROM ER BY STRETCHER. OREINTED TO ROOM. CALL LIGHT IN REACH.
[2019-11-06 17:57] VITALS: BP 126/69; BMI 29.2
--- NOTE | 2019-11-06 19:02 | NUR ---
REPORT RECEIVED, WILL CONTINUE POC. PATIENT IS AAOX4, ASSISTED TO BATHROOM. PATIENT SHORT OF BREATH WITH WEAKNESS, 2L O2 VIA NC. PIV TO LT AC, PATENT, INFUSING NS @ 125ML/HR. PATIENT REQUESTS A FEW MINUTES IN THE BATHROOM, SHOWED HER WHERE THE CALL LIGHT WAS TO USE IT WHEN SHE IS FINISHED SO I COULD ASSIST HER BACK TO BED.
--- NOTE | 2019-11-06 19:30 | NUR ---
PUT PATIENTS GOWN ON, WARMED UP HER SOUP AND GOT HER SOME ICE WATER. ROOM IS WARM AND PATIENT IS SOB. SET UP A FAN, PATIENT STATES SHE'S FEELING BETTER.
[2019-11-06 20:00] VITALS: BP 144/76
--- NOTE | 2019-11-06 20:13 | NUR ---
PATIENT STATES, "I'M GONNA IN THIS HOSPITAL". SHE'S FEELING REAL ANXIOUS AND UPSET. PAGED JUAN DAVID JAUREGUI APN FOR SOMETHING FOR ANXIETY.
--- NOTE | 2019-11-06 20:25 | NUR ---
CALL BACK FROM AMANDA AMBRIZ APN. NEW ORDERS RECEIVED.
[2019-11-07] VITALS: BP 142/58
--- NOTE | 2019-11-07 05:43 | NUR ---
I have reviewed this patient and I concur with the Shift Assessment completed by the Licensed Practical Nurse today this shift.
--- NOTE | 2019-11-07 06:44 | NUR ---
PATIENT C/O NAUSEA, PRN ZOFRAN ADMINISTERED PER ORDERS.
[2019-11-07 07:06] LABS: ALBUMIN 3.1 g/dL (3.4-5.0); ANION GAP 10.6 mmol/L (8-16); BILIRUBIN - TOTAL 0.46 mg/dL (0.2-1.3); CALCIUM 9.4 mg/dL (8.5-10.1); CARBON DIOXIDE 27.4 mmol/L (21.0-32.0); CREATININE - SERUM 0.9 mg/dL (0.6-1.3); MAGNESIUM - SERUM 1.2 mg/dL (1.8-2.4); PROTEIN - SERUM 6.4 g/dL (6.4-8.2)
--- NOTE | 2019-11-07 07:30 | NUR ---
PT LAYING SUPINE, RR EVEN AND UNLABORED ON 2L NC. DENIES NEEDS OR PAIN AT THIS TIME. CALL LIGHT WTIHIN REACH. BED IN LOWEST POSITION WILL CONTINUE TO MONITOR. 0800- CARDIZEM INITIATED TO LEFT AC. ADDITIONAL IV INSERTED TO RIGHT FOREARM. X1 ATTEMPT (22G). INFUSING NS @ 125.
[2019-11-07 07:37] LABS: HEMATOCRIT 37.4 % (36.0-48.0); HEMOGLOBIN 12.9 g/dL (12-16); MCH 31.5 pg (26.0-34.0); MCHC 34.5 g/dL (31.0-37.0); MCV 91.2 fL (80.0-100.0); MEAN PLATELET VOLUME 10.2 fL (7.4-10.4); NEUTROPHILS 56.7 % (40-80); PLATELET COUNT 260 10x3/uL (130-400); RDW 12.8 % (11.5-14.5); WBC 6.3 10x3/uL (4.8-10.8)
[2019-11-07 09:00] VITALS: BP 142/74
[2019-11-07 11:00] VITALS: BP 127/33
--- NOTE | 2019-11-07 13:07 | NUR ---
I have reviewed this patient and I concur with the Shift Assessment completed by the Licensed Practical Nurse today this shift.
[2019-11-07 13:28] VITALS: BMI 29.2
[2019-11-07 15:00] VITALS: BP 130/74
[2019-11-07 18:20] VITALS: Ht 160 cm; Wt 73.8 kg
[2019-11-07 20:00] VITALS: BP 154/56
--- NOTE | 2019-11-07 20:13 | NUR ---
PATIENT IS RESTING COMFORTABLY IN BED. SHE SPILLED SOMETHING ON HER SHEET, SO WE CHANGED OUT HER BED. RESPIRATORY THERAPIST INCREASED HER NASAL CANULA TO 5 LITERS. WE WILL MONITOR HER RESPIRATORY STATUS, RATE, AND RHYTHM.
--- NOTE | 2019-11-07 20:15 | NUR ---
PATIENT'S HOME MEDICATIONS DID NOT GET STARTED. I DORCAS FALL APN, WHO ORDERED COREG 3.125 MG BID, LIPITOR 4O MG NIGHTLY, AND SINGULAIR 10 MG NIGHTLY. HE SAID BE SURE DR. ELOISE HUIZAR APN RECONCILED MEDICATIONS.
[2019-11-08] VITALS (9 sets, daily range): BP systolic 107–153; BP diastolic 46–74
--- NOTE | 2019-11-08 04:22 | NUR ---
PATIENT IS SLEEPING COMFORTABLY IN BED. HER DAUGHTER IS IN THE ROOM. LAB CALLED A CRITICAL ON THE PATIENT'S BLOOD CULTURE. IT WAS POSITIVE FOR GRAM POSITIVE COCCI IN CLUSTERS. I CALLED JUAN DAVID JEAN BAPTISTE. I TOLD HIM WHAT ANTIBIOTICS THE PATIENT WAS ON AND HE SAID THEY WOULD COVER THE BACTERIA IN THE BLOOD.
[2019-11-08 05:19] LABS: ANION GAP 11.2 mmol/L (8-16); CALCIUM 8.9 mg/dL (8.5-10.1); CARBON DIOXIDE 26.6 mmol/L (21.0-32.0); CREATININE - SERUM 0.9 mg/dL (0.6-1.3); MAGNESIUM - SERUM 1.2 mg/dL (1.8-2.4)
[2019-11-08 05:25] LABS: HEMATOCRIT 35.4 % (36.0-48.0); HEMOGLOBIN 11.8 g/dL (12-16); LYMPHOCYTES 28.7 % (15-50); MCH 30.6 pg (26.0-34.0); MCHC 33.3 g/dL (31.0-37.0); MCV 91.9 fL (80.0-100.0); MEAN PLATELET VOLUME 9.7 fL (7.4-10.4); NEUTROPHILS 58.4 % (40-80); PLATELET COUNT 263 10x3/uL (130-400); RBC 3.85 10x6/uL (4.00-5.40); RDW 13.2 % (11.5-14.5); WBC 7.3 10x3/uL (4.8-10.8)
[2019-11-08 05:26] LABS: POTASSIUM - SERUM 2.8 mmol/L (3.5-5.1)
--- NOTE | 2019-11-08 07:30 | NUR ---
PT SITTING UP IN BED, RR EVEN AND UNLABORED ON 5L NC. REVIEWED CHART WITH PT AND FAMILY MEMBER. CALLED AARON GOSS TO GET FLUIDS TURNED DOWN. ORDERS RECIEVED TO DECREASE FLUIDS TO 75MLS PER HOUR. BED IN LOWEST POSITION. DENIES FURTHER NEEDS OR PAIN AT THIS TIME. CALL LIGHT WITHIN REACH. WILL CONTINUE TO MONITOR.
--- NOTE | 2019-11-08 16:09 | NUR ---
RESP UL ON . IV PATENT. TELEMETRY SR 83. VISITOR AT BS. CALL LIGHT IN REACH.
--- NOTE | 2019-11-08 17:00 | NUR ---
PT FAMILY MEMBER CAME OUT FRANTIC AND STATED THAT HER MOTHER CANNOT BREATHE. ATTEMPTED TO GO IN AND SIT PT UP AND SPEAK CALMLY. SATS IN BETWEEN 84-92% ON 5L. RESPIRATORY CALLED TO ROOM. PT STATES SHE WANTS A RAPID RESPONSE CALLED. STATED I DID NOT FEEL IF THIS SITUATION NEEDED A RAPID RESPONSE AT THIS TIME. CALLED AND SPOKE WITH DR. REAVES. HE STATED HE WANTED PT ON BIPAP AND PER PT FAMILY MEMBER REQUEST, SHE CAN BE TRANSFERRED TO ICU. PT PLACED ON BIPAP. SATS IMPROVED TO 96%. WILL TRANSFER PT.
--- NOTE | 2019-11-08 19:00 | NUR ---
ASSESSMENT COMPLETED. SEE FLOWSHEETS FOR ALL FINDINGS. PT SOB NOTED WITH TURNING AND REPOSITIONED IN BED. O2SAT 92% VIA HIGH FLOW NC ON 7L. HOB UP. CALL LIGHT IN REACH. CONT TO MONITOR.
--- NOTE | 2019-11-08 20:30 | NUR ---
DAUGHTER HERE AT BEDSIDE. UPDATED.
--- NOTE | 2019-11-08 21:00 | NUR ---
ASISSTED PT WITH BEDPAN. DYSPNEA AND SOB NOTED WITH TURNING AND TAKING PT OFF BEDPAN.ENCOUREGED TO TAKE SLOW DEEP BREATHE.C/O NOT BREATHING. PUT PT ON BIPAP. O2SAT 94% , PT GETS MORE ANXIOUS. CHANGED WITH HIGH FLOW NC. WILL CONT TO MONITOR.
--- NOTE | 2019-11-08 23:00 | NUR ---
REASSESSMENT COMPLETED. SEE FLOWSHEETS FOR ALL FINDINGS. PT ON BIPAP RESTING WITHOUT SIGNS OF DISTRESS. NO ACUTE CHANGES NOTED AT THIS TIME VSS. CONT TO MONITOR.
[2019-11-09] VITALS (17 sets, daily range): BP systolic 114–163; BP diastolic 62–78
--- NOTE | 2019-11-09 01:00 | NUR ---
PT ON BIPAP RESTING QUIETLY WITHOUT DISTRESS. VSS.CPOC.
--- NOTE | 2019-11-09 03:00 | NUR ---
REASSESSMENT COMPLETED PER FLOWSHEETS. PT ON BIPAP, NO ACUTE CHANGES NOTED IN PT'S STATUS. VSS. CPOC.
--- NOTE | 2019-11-09 04:00 | NUR ---
I&O COMPLETED TO CHART WITHOUT DIFFIC.
[2019-11-09 06:35] LABS: HEMATOCRIT 36.2 % (36.0-48.0); HEMOGLOBIN 12.1 g/dL (12-16); LYMPHOCYTES 20.8 % (15-50); MCH 30.8 pg (26.0-34.0); MCHC 33.4 g/dL (31.0-37.0); MCV 92.1 fL (80.0-100.0); MEAN PLATELET VOLUME 9.4 fL (7.4-10.4); NEUTROPHILS 65.5 % (40-80); PLATELET COUNT 242 10x3/uL (130-400); RBC 3.93 10x6/uL (4.00-5.40); RDW 13.5 % (11.5-14.5)
--- NOTE | 2019-11-09 07:00 | NUR ---
REPORT RECEIVED FROM OFF GOING NURSE AND PATEINT CARE ASSUMED. PATIENT LAYING IN BED ON RT SIDE WITH EYES CLOSED AND BREATHING EVENLY. VSS. WILL CONTINUE WITH PLAN OF CARE. SR UP X 2 BED IN LOW POSITION AND CALL LIGHT IN REACH.
[2019-11-09 07:08] LABS: ANION GAP 11.5 mmol/L (8-16); CALCIUM 8.6 mg/dL (8.5-10.1); CARBON DIOXIDE 27.5 mmol/L (21.0-32.0); CREATININE - SERUM 0.8 mg/dL (0.6-1.3); MAGNESIUM - SERUM 1.4 mg/dL (1.8-2.4); PHOSPHOROUS 2.6 mg/dL (2.5-4.9)
--- NOTE | 2019-11-09 07:10 | NUR ---
REPORT RECEVIED FROM CAP CUTTER AND PATIENT CARE ASSUMED. PATIENT LAYING IN BED ON BACK AWAKE, ALERT AND ORIENTED X 4. DTR AT BS . HF NC AT 7. PATIENT BETHING EVENLY AND NON LABORED. ORDER RECEIVED FOR HENNESSY.DTR TO WAITING ROOM. HENNESSY PLACED BY ZARI PURI WITHOUT DIFFICULTY AND PATIENT TOLERATED WELL. REPOSITIONED PATIENT FOR COMFORT. STATES THAT SHE WANTS TO REST. LIGHTS OUT. SR UP X 2 BED IN LOW POSITION AND CALL LIGHT IN REACH.
--- NOTE | 2019-11-09 09:00 | NUR ---
PATIENT AWAKE, ALERT AND OREINTED X 4. DTR JOHNATHAN AT BS. ASSESSMENT COMPLETED. PATIENT AND FAMILY DESIRE NO FURTHER TREATMENT OR TESTING. PATIENT WISHES TO GO HOME ON HOSPICE CARE. DR REAVES AND DR VILLAGOMEZ TO UNIT. BOTH DISCUSED WITH FAMILY AND PATIENT . ZARI MCCAIN CM NOTIFIED. FAMILY REQUESTS [facility]. LENORA.
--- NOTE | 2019-11-09 09:02 | NUR ---
Nutrition follow-up: Pt does not want to be disturbed; curtain closed and nursing reports pt sleeping. BIPAP on Diet: Regular with poor po intake Labs reviewed Wt: 162# RDN following.
--- NOTE | 2019-11-09 12:30 | NUR ---
DR LONGO IN ROOM AND AWARE OF PATIENT WISHES FOR HOSPICE CARE. ORDER FOR HOSPICE CONSULT AND DC PLACED.
--- NOTE | 2019-11-09 15:00 | NUR ---
REASSESMENT COMPLETED. PATIENT RESTING QUIETLY WITH HF NC @7.
--- NOTE | 2019-11-09 17:30 | NUR ---
HOSPICE CALLED. READY FOR PATIENT TO BE TRANSPORTED TO HOME. DC ORDERS AND PCS FROM COMPLETED. AMBULANCE NOTIFIED.
--- NOTE | 2019-11-09 19:42 | MORECARE ---
CASE MANAGEMENT DISCHARGE SUMMARY PATIENT: FLAQUITA MCGRATH UNIT: [id number] ADM DATE: 11/06/19 AGE: 84 : 37 SEX: F ROOM/BED: D.2304 AUTHOR: ROZ CASTILLO PHYSICIAN: REFERRING PHYSICIAN: HARSHA BERNAL DO DATE OF SERVICE: 11/09/19 Discharge Plan Patient Name: FLAQUITA MCGRATH Facility: [facility]:[place] : 1935 Planned Disposition: Home with Hospice Anticipated Discharge Date: Discharge Date: Expected LOS: Initial Reviewer: [email or web address] Initial Review Date: 11/06/2019 Generated: 11/09/19 8:41 pm Comments DCP- Discharge Planning Updated by [email or web address]: Mira Wall on 11/09/19 6:[address] CM received order from nursing that patient and family have decided they would like Hospice Services and patient to go home on hospice. CM received a call from patient's daughter that she wants [facility] and she has already spoken with Sarah at [facility]. CM call [facility] and spoke with Obi and faxed records. Hospice will have patient have nurse come to evaluate and family to be here to sign paperwork. CM later received notification that patient has been accepted that as soon as DME is setup in the home then patient can discharge. Hospice will call unit and let them know when they are ready for discharge. Nursing will call ambulance for transport home. DCPIA - Discharge Planning Initial Assessment Updated by [email or web address]: Mira Wall on 11/09/19 7:37 pm * Is the patient Alert and Oriented? Yes * How many steps to enter\exit or inside your home? External Providers External Provider: [facility] *(provides inpt [facility] Next Contact Date: Service Request Date: Service Type: Resolution: Reviewer: Comments: Patient Name: FLAQUITA MCGRATH Page [id number] at 1942 All edits/amendments must be made on the electronic document DICTATION DATE: 11/09/191940 MOVER: JULIAN 11/09/191940 RPT#: [id number] DC DATE: STATUS: ADM IN [facility] [address] [place] [address] END OF REPORT
--- NOTE | 2019-11-09 21:04 | NUR ---
1899- ASSESSMENT COMPLETED. ON BIPAP 2103- LEAVING VIA EMS
--- NOTE | 2019-11-09 21:05 | NUR ---
LEFT AT 2104 VIA EMS ON BIPAP. IV OUT. HENNESSY CATHETER STILL INTACT
--- NOTE | 2019-11-11 19:07 | MORECARE ---
CASE MANAGEMENT DISCHARGE SUMMARY PATIENT: FLAQUITA MCGRATH UNIT: [id number] ADM DATE: 11/06/19 AGE: 84 : 37 SEX: F ROOM/BED: D.2304 AUTHOR: ROZ CASTILLO PHYSICIAN: REFERRING PHYSICIAN: HARSHA BERNAL DO DATE OF SERVICE: 11/11/19 Discharge Plan Patient Name: FLAQUITA MCGRATH Facility: [facility]:[place] : 1935 Planned Disposition: Home with Hospice Anticipated Discharge Date: Discharge Date: 11/09/2019 Expected LOS: Initial Reviewer: [email or web address] Initial Review Date: 11/06/2019 Generated: 11/11/19 8:07 pm Comments DCP- Discharge Planning Updated by [email or web address]: Mira Wall on 11/09/19 6:[address] CM received order from nursing that patient and family have decided they would like Hospice Services and patient to go home on hospice. CM received a call from patient's daughter that she wants [facility] and she has already spoken with Sarah at [facility]. CM call [facility] and spoke with Obi and faxed records. Hospice will have patient have nurse come to evaluate and family to be here to sign paperwork. CM later received notification that patient has been accepted that as soon as DME is setup in the home then patient can discharge. Hospice will call unit and let them know when they are ready for discharge. Nursing will call ambulance for transport home. DCPIA - Discharge Planning Initial Assessment Updated by [email or web address]: Mira Wall on 11/09/19 7:37 pm * Is the patient Alert and Oriented? Yes * How many steps to enter\exit or inside your home? Last DP export: 11/09/19 6:42 p Patient Name: FLAQUITA MCGRATH Page [id number] at 1907 All edits/amendments must be made on the electronic document DICTATION DATE: 11/11/191906 STORE CLERK CHECKER: JULIAN 11/11/191906 RPT#: [id number] DC DATE:11/09/19 STATUS: DIS IN [facility] [address] [place] [address] END OF REPORT
== END 2019-11-09 21:04 | disposition home health service (06) | DRG 193 ==
LOC: D.ER 11:03 → D.EDHOLD 13:39 → D.M2 13:39 → D.ICU 11-08 18:23
PROVIDERS: Family Medicine; ADMIT Family Medicine; ATTEND Family Medicine
PROC: 5A09357 Assistance with Respiratory Ventilation, Less than 24 Consecutive Hours, Continuous Positive Airway Pressure (ICD-10-PCS; principal; 2019-11-07)
DX: J18.9 Pneumonia, unspecified organism (principal); J98.59 Other diseases of mediastinum, not elsewhere classified; J96.21 Acute and chronic respiratory failure with hypoxia; N39.0 Urinary tract infection, site not specified; R64 Cachexia; I10 Essential (primary) hypertension; E87.6 Hypokalemia; I48.91 Unspecified atrial fibrillation; J45.909 Unspecified asthma, uncomplicated; R13.10 Dysphagia, unspecified; K21.9 Gastro-esophageal reflux disease without esophagitis; I25.10 Atherosclerotic heart disease of native coronary artery without angina pectoris; I35.0 Nonrheumatic aortic (valve) stenosis; Z68.29 Body mass index [BMI] 29.0-29.9, adult; E78.5 Hyperlipidemia, unspecified; J44.9 Chronic obstructive pulmonary disease, unspecified